=== PATIENT | male | born 1960 | race Caucasian/White ===

== ENCOUNTER 2018-01-14 13:09 | Emergency (ER) | payer OTHER, MEDICAID ==
[~2018-01-14] VITALS: Ht 180.3 cm; Wt 104.3 kg
[~2018-01-14 13:09] MED LIST: HYDR-548 PO
[2018-01-14 13:13] VITALS: BP 114/63
== END 2018-01-14 14:48 ==
LOC: ER 13:10
DX: S00.81XA Abrasion of other part of head, initial encounter (principal); G89.29 Other chronic pain; F17.200 Nicotine dependence, unspecified, uncomplicated; Y08.89XA Assault by other specified means, initial encounter; Y93.89 Activity, other specified; Y92.89 Other specified places as the place of occurrence of the external cause; Y99.8 Other external cause status
CPT/HCPCS: A4606; A6402; Z7610